=== PATIENT | male | born 1985 | race Two or more races ===

== ENCOUNTER 2018-06-10 02:31 | Emergency (ER) | payer OTHER ==
[~2018-06-10] VITALS: Ht 177.8 cm; Wt 99.8 kg
[2018-06-10 02:49] VITALS: BP 138/78
--- NOTE | 2018-06-10 03:10 | NUR ---
Pt BIBPD FOR OK TO BOOK/MED CLEARANCE. Pt IS BEING UNCOOPERATIVE, NOT ANSWERING QUESTIONS, NOT TALKING APPROPRIATELY; Pt IS ALTERED, STATING THAT HE IS ON A TRAIN. PER PD REPORT -SOB, -N/V, -DIZZINES, -SI. Pt IS AFEBRILE. NO S/S OF ACUTE DISTRESS OR SEVERE SOB NOTED. Pt IS IN BED ALREADY SEEN BY . AT BEDSIDE.
[2018-06-10 03:22] LABS: BASOPHILS % (AUTO) 0.4 % (0.0-2.0); EOSINOPHILS % (AUTO) 1.7 % (0.0-6.0); HEMATOCRIT 43 % (39-51); HEMOGLOBIN 15.3 g/dL (13.5-17.5); LYMPHOCYTES # (AUTO) 1.8 /CMM (0.8-4.8); LYMPHOCYTES % (AUTO) 23.1 % (20.0-44.0); MEAN CORPUSCULAR HGB CONC 35 g/dl (31.0-36.0); MEAN CORPUSCULAR VOLUME 95 fL (80-96); MONOCYTES # (AUTO) 1.2 /CMM (0.1-1.30); MONOCYTES % (AUTO) 14.8 % (2.0-12.0); NEUTROPHILS # (AUTO) 4.7 /CMM (1.8-8.9); PLATELET COUNT (AUTO) 200 /CMM (150-450); RED BLOOD CELL COUNT(AUTO) 4.57 MIL/uL (4.5-6.0); WHITE BLOOD COUNT (AUTO) 7.9 K/uL (4.3-11.0)
[2018-06-10 03:30] LABS: CALCIUM, SERUM 9.2 mg/dL (8.5-10.1); CARBON DIOXIDE 27 mmol/L (21-32); CHLORIDE 103 mmol/L (98-107); CREATININE 1.2 mg/dL (0.6-1.3); GLUCOSE 103 mg/dL (74-106); POTASSIUM 3.6 mmol/L (3.5-5.1); SODIUM SERUM 141 mmol/L (136-145); UREA NITROGEN, BLOOD 19 mg/dL (7-18)
[2018-06-10 03:36] LABS: ALANINE AMINOTRANSFERASE 85 U/L (12-78); ALBUMIN 4.4 g/dL (3.4-5.0); ALCOHOL, BLOOD < 3 mg/dL (0-0); ALKALINE PHOSPHATASE 112 U/L (46-116); ASPARTATE AMINOTRANSFERASE 141 U/L (15-37); BILIRUBIN,DIRECT 0.3 mg/dL (0.0-0.2); BILIRUBIN,TOTAL 2.2 mg/dL (0.2-1.0); TOTAL PROTEIN, SERUM 7.8 g/dL (6.4-8.2)
[2018-06-10 03:37] LABS: ACETAMINOPHEN 0 ug/ml (10-30)
--- NOTE | 2018-06-10 05:15 | NUR ---
URINE COLLECTED. SWE[employer] BY LAB.
== END 2018-06-10 06:07 ==
LOC: ER 02:32
DX: F15.10 Other stimulant abuse, uncomplicated (principal); R45.1 Restlessness and agitation
CPT/HCPCS: 36415; 80048; 80076; 80305; 80307; 80329; 85025; 99283; A4606; G0480